=== PATIENT | female | born 1990 | race American Indian/Alaskan Native ===

== ENCOUNTER 2017-07-12 19:00 | Emergency (ER) | payer SELFPAY ==
[2017-07-12 19:32] VITALS: BP 144/101
[2017-07-12] MEDS ORDERED: TYLENOL PO ONE (20:02)
[2017-07-12] MEDS ORDERED: TYLENOL ONE (20:04)
--- NOTE | 2017-07-13 00:38 | Emergency Department Report ---
- General Chief Complaint: Sore Throat Stated Complaint: SORE THROAT Time Seen by Provider: 07/12/17 23:51 Source: patient Mode of arrival: Ambulatory Limitations: No Limitations - History of Present Illness Initial Comments: Patient is a 27-year-old -[place] female who presents for sore throat 3 days patient states pain is 410 burning exacerbated by swallowing however patient is tolerating by mouth there is no nausea no vomiting states low grade fever Tmax 101 oral subjective no fever and clinic today MD Complaint: fever, sore throat Onset/Timin -: days(s) Severity: moderate Severity scale (0 -10): 4 Quality: burning, sharp Consistency: intermittent Improves With: nothing Worsens With: other (swallowing ) Associated Symptoms: sore throat. denies: chills, myalgias, rhinorrhea, nasal congestion, stiff neck, cough, chest pain, shortness of breath, nausea, vomiting , diarrhea, dysuria, rash, confusion, right sweats, weight loss, epistaxis, hoarseness, ear pain Treatments Prior to Arrival: none - Related Data Previous Rx's Medication Instructions Recorded Last Taken Type Amoxicillin 500 mg PO TID #30 capsule 07/13/17 Unknown Rx Benzocaine/Menth/Cetylpyrd 8 each MM QID PRN #3 packet 07/13/17 Unknown Rx [Cepacol X Strength] Ibuprofen 800 mg PO TID PRN #30 tablet 07/13/17 Unknown Rx Allergies Allergy/AdvReac Type Severity Reaction Status Date / Time No Known Allergies Allergy Unverified 08/31/14 21:30 ED Review of Systems ROS: Stated complaint: SORE THROAT Other details as noted in HPI Constitutional: fever Eyes: denies: eye pain, eye discharge, vision change ENT: throat pain Respiratory: denies: cough, shortness of breath, wheezing Cardiovascular: denies: chest pain, palpitations Endocrine: no symptoms reported Gastrointestinal: denies: abdominal pain, nausea, diarrhea Genitourinary: denies: urgency, dysuria, discharge Musculoskeletal: as per HPI Skin: denies: rash, lesions Neurological: denies: headache, weakness, paresthesias Psychiatric: denies: anxiety, depression Hematological/Lymphatic: denies: easy bleeding, easy bruising ED Past Medical Hx - Past Medical History Previous Medical History?: No - Surgical History Past Surgical History?: No - Social History Smoking Status: Current Every Day Smoker Substance Use Type: None - Medications Home Medications: Home Medications Medication Instructions Recorded Confirmed Last Taken Type Amoxicillin 500 mg PO TID #30 capsule 07/13/17 Unknown Rx Benzocaine/Menth/Cetylpyrd 8 each MM QID PRN #3 packet 07/13/17 Unknown Rx [Cepacol X Strength] Ibuprofen 800 mg PO TID PRN #30 tablet 07/13/17 Unknown Rx ED Physical Exam - General Limitations: No Limitations General appearance: alert, in no apparent distress - Head Head exam: Present: atraumatic, normocephalic - Eye Eye exam: Present: normal appearance, PERRL, EOMI Pupils: Present: normal accommodation - ENT ENT exam: Present: mucous membranes moist, TM's normal bilaterally - Expanded ENT Exam Expanded Mouth exam: Present: tongue normal. Absent: trismus, tongue elevation Throat exam: Positive: tonsillar erythema, tonsillomegaly, tonsillar exudate ( mild red lesions white exudate ). Negative: R peritonsillar mass, L peritonsillar mass - Neck Neck exam: Present: normal inspection, full ROM. Absent: tenderness, lymphadenopathy, thyromegaly - Respiratory Respiratory exam: Present: normal lung sounds bilaterally. Absent: respiratory distress, wheezes, rhonchi, chest wall tenderness - Cardiovascular Cardiovascular Exam: Present: regular rate, normal rhythm, normal heart sounds. Absent: systolic murmur, diastolic murmur, rubs, gallop - GI/Abdominal GI/Abdominal exam: Present: soft, normal bowel sounds. Absent: distended, tenderness, guarding, rebound, rigid, mass, bruit, pulsatile mass, hernia - Rectal Rectal exam: Present: deferred - Extremities Exam Extremities exam: Present: normal inspection - Back Exam Back exam: Present: normal inspection - Neurological Exam Neurological exam: Present: alert, oriented X3, CN II-XII intact, normal gait - Psychiatric Psychiatric exam: Present: normal affect, normal mood - Skin Skin exam: Present: warm, dry, intact, normal color. Absent: rash ED Course Vital Signs 07/12/17 07/12/17 19:29 19:56 Temperature 98.9 F 98.9 F Pulse Rate 89 82 Respiratory 18 18 Rate Blood Pressure 144/101 144/101 O2 Sat by Pulse 98 99 Oximetry ED Medical Decision Making - Lab Data strep negative. - Medical Decision Making ENT exam TMs normal no pain erythema no scleral obstruction or polyps pharynx moderate erythema and mild swelling mild lesions no tonsillomegaly no tonsillar abscess , mild white exudate, no stridor. No swelling lungs clear no wheezing rapid strep negative plan treat for pharyngitis ibuprofen and Cepacol lozenges follow with PCP in 2-3 days return to ER if symptoms worsen patient verbalizes understanding and agreement with discharge plan for DC to home in stable condition at this time Critical care attestation.: If time is entered above; I have spent that time in minutes in the direct care of this critically ill patient, excluding procedure time. ED Disposition Clinical Impression: Pharyngitis Qualifiers: Pharyngitis/tonsillitis etiology: unspecified etiology Qualified Code(s): J02.9 - Acute pharyngitis, unspecified Disposition: DC-01 TO HOME OR SELFCARE Is pt being admited?: No Does the pt Need Aspirin: No Condition: Good Instructions: Pharyngitis (ED) Prescriptions: Amoxicillin 500 mg PO TID #30 capsule Benzocaine/Menth/Cetylpyrd [Cepacol X Strength] 8 each MM QID PRN #3 packet PRN Reason: Throat Pain Ibuprofen 800 mg PO TID PRN #30 tablet PRN Reason: Pain Referrals: SINAI ABRAHAM MD [Staff Physician] - 3-5 Days Forms: Work/School Release Form(ED) Time of Disposition: 00:51
== END 2017-07-13 00:55 | disposition home or self-care (01) ==
LOC: ED 19:00
DX: J02.9 Acute pharyngitis, unspecified (principal); F17.200 Nicotine dependence, unspecified, uncomplicated
CPT/HCPCS: 87116; 87430; 99282